=== PATIENT | female | born 1955 | race Caucasian/White ===

== ENCOUNTER 2016-09-13 07:51 | Emergency (ER) | payer OTHER ==
[~2016-09-13] VITALS: Ht 170.2 cm; Wt 65.0 kg
[2016-09-13 08:34] LABS: BASOPHIL COUNT 0.1 K/uL (0-0.1); EOSINOPHIL (%) 0 % (0-5); HEMATOCRIT 43.4 % (36.0-46.0); IMMATURE GRANULOCYTE (%) 0.8 % (0.0-0.7); IMMATURE GRANULOCYTE COUNT 0.1 K/uL; INSTRUMENT ABS NEUTROPHIL CT 7.2 K/uL; LYMPHOCYTE COUNT 1.6 K/uL (1.0-2.8); MCH 32.1 PG (29.0-34.0); MCHC 32.7 G/DL (30.0-36.0); MCV 98.2 FL (83-99); MEAN PLAT.VOLUME 9.8 uM^3 (9.5-12.4); MONOCYTE (%) 3.5 % (3-12); MONOCYTE COUNT 0.3 K/uL (0-0.8); NEUTROPHIL (%) 77.7 % (45-76); NEUTROPHIL COUNT 7.2 K/uL (1.8-6.4); PLATELET COUNT 315 K/uL (156-360); RBC DIS.WIDTH-CV 12.3 % (11.8-14.6); RBC DIS.WIDTH-SD 44.5 % (39-53); RED BLOOD COUNT 4.42 M/uL (3.80-5.20); WHITE BLOOD COUNT 9.2 K/uL (4.1-10.2)
[2016-09-13 09:10] LABS: ANION GAP 15 MEQ/L (2-14); CHLORIDE 104 MEQ/L (99-109); POTASSIUM 3.5 MEQ/L (3.7-5.4); SAMPLE HEMOLYSIS CHECK 0; SAMPLE ICTERIC CHECK 0; SAMPLE LIPEMIA CHECK 0; SODIUM 140 MEQ/L (136-147); TOTAL BILIRUBIN 0.6 MG/DL (0.0-1.0)
[2016-09-13 09:16] LABS: ALKALINE PHOSPHATASE 81 IU/L (3-129); GFR ESTIMATE (CALCULATED) > 59 mL/min/; GLUCOSE 186 mg/dL (70-99); UREA NITROGEN (BUN) 27 mg/dL (9-23)
[2016-09-13 09:47] LABS: ADD MIUA? YES; BILIRUBIN NEGATIVE; BLOOD NEGATIVE; COLOR YELLOW ((YELLOW)); GLUCOSE (STRIP) NEGATIVE; KETONES NEGATIVE; LEUKOCYTES NEGATIVE; NITRITE NEGATIVE; PROTEIN (STRIP) 30; SPECIFIC GRAVITY 1.018 (1.000-1.030); UROBILINOGEN 0.2 MG/DL (0.2-1.0)
[2016-09-13] MEDS ORDERED: ROSUVASTATIN CA10 MG PO (09:56)
[2016-09-13] MEDS ORDERED: ATENOLOL50 MG PO (09:56)
[2016-09-13] MEDS ORDERED: HYZAAR 50-121 TABLET PO (09:57)
[2016-09-13] MEDS ORDERED: CITALOPRAM HBR20 MG PO (09:57)
[2016-09-13] MEDS ORDERED: VITAMIN D-32000 UNI2 PO (09:59)
[2016-09-13] MEDS ORDERED: CALCIUM 500 MG1 EACH PO (10:00)
[2016-09-13 10:22] LABS: AMORPHOUS URATES CRYSTALS 1+; CASTS NONE SEEN /LPF; CRYSTALS PRESENT; EPITHELIAL CELLS 1+ /HPF; MUCUS NONE SEEN /LPF; RED BLOOD CELLS 0-5 /HPF (0-5); UCUL ADDED? NO; WHITE BLOOD CELLS 0-5 /HPF (0-5)
[2016-09-13 10:23] LABS: BACTERIA RARE /HPF
[2016-09-13 11:48] VITALS: BP 159/79
== END 2016-09-13 12:33 | disposition home or self-care (01) ==
LOC: EME 07:51
PROVIDERS: Emergency Medicine
DX: R56.9 Unspecified convulsions (principal); I10 Essential (primary) hypertension; I25.2 Old myocardial infarction; Z95.5 Presence of coronary angioplasty implant and graft; R51 Headache
CPT/HCPCS: 70450; 80053; 81003; 85025; 93005; 99281; 99284; J2405

== ENCOUNTER → 2016-09-18 | Outpatient (CLI) | payer OTHER ==
[~2016-09-18] MED LIST: ATENOLOL50 MG PO; CALCIUM 500 MG1 EACH PO; CITALOPRAM HBR20 MG PO; HYZAAR 50-121 TABLET PO; ROSUVASTATIN CA10 MG PO; VITAMIN D-32000 UNI2 PO
== END | disposition home or self-care (01) ==
LOC: EEG 09:57
DX: R56.9 Unspecified convulsions (principal)
CPT/HCPCS: 95954